=== PATIENT | female | born 1955 ===

== ENCOUNTER 2016-12-28 08:54 | Day surgery (SDC) | payer BC ==
[~2016-12-28] VITALS: Ht 160 cm; Wt 90.2 kg
[~2016-12-28 08:54] MED LIST: ASPIRIN 32325 MG/TAB PO; CYMBALTA 60MG60 MG PO; MULTIPLE VITAMI1 CAP PO; PREVACID 30MG30 M1 PO; PRIL40 PO; ZESTRIL 20MG TA20 MG PO
[2016-12-28 09:24] VITALS: BP 159/89; PULSE 62; TEMP 98.5
[2016-12-28] MEDS ORDERED: ZANTAC 7575 MG PO (09:33)
[2016-12-28] MEDS ORDERED: PRAVACHOL 20MG20 MG PO (09:34)
[2016-12-28] MEDS ORDERED: DIFLUCAN150 MG PO (09:34)
[2016-12-28 11:06] VITALS: BP 120/88; PULSE 77
[2016-12-28 11:15] VITALS: BP 128/77; PULSE 70
[2016-12-28 11:30] VITALS: BP 125/84; PULSE 78
== END 2016-12-28 12:03 | disposition home or self-care (01) ==
LOC: SDCO 08:54
DX: K21.0 Gastro-esophageal reflux disease with esophagitis (principal); K44.9 Diaphragmatic hernia without obstruction or gangrene; R19.7 Diarrhea, unspecified; K58.9 Irritable bowel syndrome, unspecified; K57.30 Diverticulosis of large intestine without perforation or abscess without bleeding; I10 Essential (primary) hypertension; Z79.82 Long term (current) use of aspirin; Z79.899 Other long term (current) drug therapy; Z86.010 Personal history of colon polyps; E78.00 Pure hypercholesterolemia, unspecified
CPT/HCPCS: OP; J2250; J3010; J7030

== ENCOUNTER → 2017-01-18 | Outpatient (CLI) | payer BC ==
[~2017-01-18] MED LIST changes: +DIFLUCAN150 MG PO; +PRAVACHOL 20MG20 MG PO; +ZANTAC 7575 MG PO
== END ==
LOC: MC.RAD 14:17
DX: Z12.31 Encounter for screening mammogram for malignant neoplasm of breast (principal)

== ENCOUNTER → 2018-05-02 | Outpatient (CLI) | payer OTHER | LOC: MC.RAD 13:52 | DX: Z12.31 Encounter for screening mammogram for malignant neoplasm of breast (principal) ==